=== PATIENT | male | born 1975 | race Caucasian/White ===

== ENCOUNTER → 2018-10-24 | Outpatient (CLI) | payer BC ==
[~2018-10-24] MED LIST: BUPIVACAINE MPF 0.5% 10 ML VIAL for KCIC. IM ONE; IOHEXOL 300 MG/ML 50 ML VIAL. INT ART ONE; LIDOCAINE 1% Multi-Dose 20 ML VIAL. ID ONE; MINO100C PO; NAPR-514 PO; methylPREDNISolone ACETATE 40 MG/ML VIAL. INT ART ONE
--- NOTE | 2018-10-24 16:07 | KCIC ---
Examination: Fluoro Guided Therapeutic injection left hip. History: Right hip pain, osteoarthritis Relative benefits risks and alternatives to the procedure were discussed and verbal and written informed consent was obtained. The patient was carefully prepped and draped in a sterile fashion. Lidocaine was used for local anesthesia. A timeout was performed. A 22-gauge spinal needle was advanced to the level of the hip joint at the femoral neck. A mixture of 4 cc of lidocaine, 4 bupivacaine, 4 cc of iodinated contrast and 80 mg of Depo-Medrol was injected. The needle was removed. No immediate complication. Impression: Therapeutic injection right hip. 18 seconds of fluoroscopy was used for the procedure. Total fluoroscopic image 1. Electronically signed by: Feliz Fagan MD (10/24/2018 4:03 PM) [facility]-KCIC2
== END | disposition home or self-care (01) ==
LOC: KCIC 14:23
PROVIDERS: ATTEND Nurse Practitioner Gerontology
DX: M16.11 Unilateral primary osteoarthritis, right hip (principal); Z87.891 Personal history of nicotine dependence
CPT/HCPCS: 20610; 77002; J1030; Q9967

== ENCOUNTER → 2018-11-17 | Outpatient (CLI) | payer BC ==
[~2018-11-17] MED LIST changes: -BUPIVACAINE MPF 0.5% 10 ML VIAL for KCIC. IM ONE; -IOHEXOL 300 MG/ML 50 ML VIAL. INT ART ONE; -LIDOCAINE 1% Multi-Dose 20 ML VIAL. ID ONE; -methylPREDNISolone ACETATE 40 MG/ML VIAL. INT ART ONE
[2018-11-17] MEDS: GADOBUTROL 7.5 MMOL/7.5 ML VIAL IV ONE ×2 (08:34)
--- NOTE | 2018-11-17 11:54 | KCIC ---
MRI of the Brain without and with Contrast 11/17/2018 Clinical History: Left facial numbness for one month. Technique: Unenhanced T1-weighted sagittal and axial and FLAIR, T2-weighted and diffusion-weighted axial images of the brain were obtained. After the intravenous administration of 12 cc of Gadavist, enhanced T1-weighted axial and coronal images of the brain were obtained. Findings: The ventricles and sulci are within normal limits in size and configuration. No area of significant abnormal signal intensity is seen involving the brain parenchyma. No abnormal area of contrast enhancement is seen. No extra-axial fluid collection is noted. There is no MRI evidence of acute ischemia/infarction. Mild to moderate mucosal thickening is seen throughout the paranasal sinuses. Normal flow voids are seen within the major vascular structures surrounding the brain parenchyma. Impression: 1. Negative MRI of the brain. 2. Mild to moderate mucosal thickening is seen throughout the paranasal sinuses. Electronically signed by: Rocky Reynolds MD (11/17/2018 11:49 AM) [facility]-KC[facility]1
== END | disposition home or self-care (01) ==
LOC: KCIC MRI 07:38
PROVIDERS: ATTEND Family Medicine
DX: R20.0 Anesthesia of skin (principal)
CPT/HCPCS: 70553; A9585

== ENCOUNTER → 2018-11-18 | Outpatient (CLI) | payer BC ==
--- NOTE | 2018-11-18 11:22 | KCIC ---
Indication:Abnormal liver function tests. TECHNIQUE: Grayscale, color Doppler and spectral waveform is of the abdomen obtained. COMPARISON:None FINDINGS: Pancreas is not visualized due to: Bowel gas. No gallstones, pericholecystic fluid or gallbladder wall thickening. Main portal vein is patent. Right kidney measures 12.2 cm in length without hydronephrosis. CBD measures 3 mm in diameter and is within normal limits. Liver measures 17 cm in longest dimension and is normal in size with diffuse increased echogenicity and decreased through transmission. IVC within normal limits. No aortic aneurysm. Spleen measures personally meters in longest dimension and is normal in size. Left kidney measures 13 cm in length without hydronephrosis. IMPRESSION: 1. No cholelithiasis without evidence of acute cholecystitis. 2. Hepatic steatosis. Electronically signed by: Heath Olivera DO (11/18/2018 11:17 AM) [id number]
== END | disposition home or self-care (01) ==
LOC: KCIC US 10:27
PROVIDERS: ATTEND Family Medicine
DX: K76.0 Fatty (change of) liver, not elsewhere classified (principal)
CPT/HCPCS: 76700

== ENCOUNTER → 2020-11-11 | Outpatient (CLI) | payer BC ==
[~2020-11-11] MED LIST changes: -MINO100C PO; +MINO100C61 PO
--- NOTE | 2020-11-11 14:47 | CARD ---
MR#: [id number] Date of Study: 11/11/2020 Ordering Physician: CLAY JIMENEZ, Referring Physician: CLAY JIMENEZ, Tech: Antonella Ny [facility] APPROVED REPORT EXAM: Two-dimensional and M-mode echocardiogram with Doppler and color Doppler. Other Information Quality : AverageHR: 84bpm Rhythm : NSR INDICATION Palpitations RISK FACTORS Hypertension Obesity 2D DIMENSIONS RVDd3.5 (2.9-3.5cm)Left Atrium(2D)4.2 (1.6-4.0cm) IVSd1.4 (0.7-1.1cm)Aortic Root(2D)3.3 (2.0-3.7cm) LVDd4.9 (3.9-5.9cm)LVOT Diameter2.3 (1.8-2.4cm) PWd1.4 (0.7-1.1cm)LVDs3.1 (2.5-4.0cm) FS (%) 37.4 %SV75.1 ml Aortic Valve AoV Peak Ritchie.165.9cm/sAoV VTI33.2cm AO Peak GR.11.0mmHgLVOT Peak Ritchie.142.2cm/s AO Mean GR.5mmHgAVA (VMAX)3.43cm2 Mitral Valve MV E Bxvfwrqq70.7cm/sMV DECEL QYUF259vy MV A Snqjmpex823.3cm/sE/A Ratio0.9 Tricuspid Valve TR P. Ljnrlnxg908xq/sTR Peak Gr.16mmHg Pulmonary Vein S1 Tkbpebfg94.9cm/sD2 Amvgxeem31.1cm/s PVa [id number] LEFT VENTRICLE The left ventricle is normal size. There is mild concentric left ventricular hypertrophy. The left ve ntricular systolic function is normal and the ejection fraction is within normal range. Estimated ej ection fraction 55-60%. There is normal LV segmental wall motion. Transmitral Doppler flow pattern is Grade I-abnormal relaxation pattern. RIGHT VENTRICLE The right ventricle is normal size. There is normal right ventricular wall thickness. The right ventr icular systolic function is normal. ATRIA The left atrium size is normal. The right atrium size is normal. The interatrial septum is intact wit h no evidence for an atrial septal defect or patent foramen ovale as noted on 2-D or Doppler imaging. AORTIC VALVE The aortic valve is normal in structure and function. Doppler and Color Flow revealed no significant aortic regurgitation. There is no significant aortic valvular stenosis. MITRAL VALVE The mitral valve is normal in structure and function. There is no evidence of mitral valve prolapse. There is no mitral valve stenosis. Doppler and Color Flow revealed no mitral valve regurgitation note d. TRICUSPID VALVE The tricuspid valve is normal in structure and function. Doppler and Color Flow revealed trace tricus pid regurgitation. Estimated PAP 20 mmHg. There is no tricuspid valve stenosis. PULMONIC VALVE The pulmonary valve is normal in structure and function. Doppler and Color Flow revealed no pulmonic valvular regurgitation. GREAT VESSELS The aortic root is normal in size. The ascending aorta is normal in size. The pulmonary artery is nor mal. The IVC is normal in size and collapses >50% with inspiration. PERICARDIAL EFFUSION There is no evidence of significant pericardial effusion. Critical Notification Critical Value: No <Conclusion> The left ventricle is normal size. The left ventricular systolic function is normal and the ejection fraction is within normal range. Estimated ejection fraction 55-60%. There is mild concentric left ventricular hypertrophy. Doppler and Color Flow revealed no significant aortic regurgitation. There is no significant aortic valvular stenosis. Doppler and Color Flow revealed no mitral valve regurgitation noted. Doppler and Color Flow revealed trace tricuspid regurgitation. Estimated PAP 20 mmHg. Signed by : Clay Jimenez MD Electronically Approved : 11/11/2020 14:46:36
== END ==
LOC: ECHO 08:40
PROVIDERS: ATTEND Internal Medicine Cardiovascular Disease
DX: I51.7 Cardiomegaly (principal); R06.00 Dyspnea, unspecified
CPT/HCPCS: 93306

== ENCOUNTER → 2020-12-12 | Outpatient (CLI) | payer BC ==
--- NOTE | 2020-12-12 15:42 | RAD ---
EXAM: Left lower extremity venous Doppler sonogram; Valdivia scale left lower extremity sonogram. HISTORY: Pain and swelling. TECHNIQUE: Valdivia scale and color Doppler sonographic evaluation of the left lower extremity veins with spectral waveform analysis was performed. FINDINGS: There is normal color flow, normal compressibility and there are normal spectral waveforms in the common femoral, superficial femoral, popliteal, posterior tibial and greater saphenous veins. There is a complex fluid collection within the anterior fletcher soft tissues at the site of palpable con cern measuring 5.8 x 4.4 x 1.8 cm. IMPRESSION: 1. No Doppler evidence of lower extremity deep venous thrombosis. 2. 5.8 cm complex fluid collection within the anterior fletcher soft tissues. If there has been a history of recent trauma, this likely a soft tissue hematoma. Correlate with physical exam findings to exclu de infected fluid collection. There is no internal blood flow to suggest a solid lesion component. Electronically signed by: Catherine Walters MD (12/12/2020 3:40 PM) [id number]
== END ==
LOC: US 14:42
PROVIDERS: ATTEND Family Medicine
DX: R22.42 Localized swelling, mass and lump, left lower limb (principal)
CPT/HCPCS: 76882; 93971

== ENCOUNTER → 2021-07-11 | Outpatient (CLI) | payer BC ==
--- NOTE | 2021-07-11 09:34 | KCIC ---
AP and Lateral Views of the Chest 07/11/2021 8:25 AM Indication: Reason: SOA, no hx. asthma or COPD, nonsmoker / Spl. Instructions: / History: Comparison: None Findings: There is no focal consolidation or infiltrate identified. The cardiomediastinal silhouette is within normal limits. There is no evidence of pneumothorax or pleural effusion. No acute osseous a bnormalities are identified. Impression: No evidence of acute cardiopulmonary process. Electronically signed by: Honorio Horner MD (07/11/2021 9:32 AM) [id number]
== END ==
LOC: KCIC 07:56
PROVIDERS: ATTEND Internal Medicine Pulmonary Disease
DX: R06.02 Shortness of breath (principal)
CPT/HCPCS: 71046

== ENCOUNTER → 2021-07-11 | Outpatient (CLI) | payer BC ==
--- NOTE | 2021-07-11 13:22 | KCIC ---
Complete abdominal ultrasound. 07/11/2021 INDICATION: Elevated LFTs COMPARISON STUDY: Abdominal ultrasound November 18, 2018 Discussion: Ultrasound evaluation of the abdomen was performed. Static images are submitted to PACS. The aorta and IVC are poorly visualized. The pancreas is partially visualized. Visualized portions of the pancreas are unremarkable. The liver is enlarged measuring 20 cm longitudinally. Hepatic echotex ture is mildly heterogenous, but overall somewhat hyperechoic. No focal hepatic lesions are identifie d. Portions of the liver obscured. The portal vein appears to be grossly patent. The right kidney is normal in appearance measuring 14 cm x 6 cm x 6 cm. The gallbladder is normal in appearance without e vidence of wall thickening, stones, or sludge. The common bile duct is nondilated at 3 mm. Spleen is enlarged measuring 17 cm longitudinally. The left kidney is normal in appearance measuring 13.3 cm. IMPRESSION: 1.Hepatosplenomegaly. Both the liver and spleen have slightly increased in size with respect to exam from November 2018. 2. Probable hepatic steatosis Electronically signed by: Honorio Horner MD (07/11/2021 1:20 PM) [id number]
== END ==
LOC: KCIC US 07:53
PROVIDERS: ATTEND Family Medicine
DX: R16.2 Hepatomegaly with splenomegaly, not elsewhere classified (principal); R79.89 Other specified abnormal findings of blood chemistry; R17 Unspecified jaundice
CPT/HCPCS: 76700

== ENCOUNTER → 2021-11-16 | Outpatient (CLI) | payer BC ==
--- NOTE | 2021-11-16 13:05 | KCIC ---
CT of the chest without contrast: Clinical History: Reason: Hemoptysis. Past smoker, quit over 25 yrs. ago. Hx. Covid 2021. / Spl . Instructions: / History: Daily symptoms in the morning.. Axial helical images of the chest were obtained without contrast. FINDINGS: The lungs and pleural margins are clear. There is no mediastinal or hilar lymphadenopathy. The thoracic aorta appears normal. Impression: No significant findings. PQRS Compliance Statement: One or more of the following individualized dose reduction techniques were utilized for this examinat ion: 1. Automated exposure control 2. Adjustment of the mA and/or kV according to patient size 3. Use of iterative reconstruction technique Electronically signed by: Ye Salinas III, MD (11/16/2021 1:02 PM) [facility]
== END ==
LOC: KCIC CT 12:18
PROVIDERS: ATTEND Family Medicine
DX: R04.2 Hemoptysis (principal); Z87.890 Personal history of sex reassignment; Z86.16 Personal history of COVID-19
CPT/HCPCS: 71250

== ENCOUNTER → 2022-02-20 | Outpatient (CLI) | payer BC ==
[~2022-02-20] MED LIST changes: +BUPIVACAINE MPF 0.5% 10 ML VIAL. INT ART ONE; +IOHEXOL 300 MG/ML 50 ML VIAL. INT ART ONE; +LIDOCAINE 1% Multi-Dose 20 ML VIAL. ID ONE; +TRIAMCINOLONE PRES.FREE 40 MG/ML VIAL. INT ART ONE
--- NOTE | 2022-02-20 15:44 | KCIC ---
EXAM: FLUOROSCOPY GUIDED HIP ARTHROGRAM History: Right hip pain, osteoarthritis COMPARISON: None available TECHNIQUE: Consent: An informed consent was obtained from the patient prior to the procedure. Appropriate time out procedures were performed. The skin was prepped and draped in the usual fashion under aseptic precautions. 1% lidocaine was util ized for local anesthesia. Under fluoroscopic guidance a 22 gauge long spinal needle was used to access the hip joint. 4 mL of O mnipaque, 4 mL lidocaine, 4 mL bupivacaine, 80 mg Kenalog was injected into the hip joint. Needle was removed. No complications. IMPRESSION: Technically successful fluoroscopic-guided right hip steroid injection. Total fluoroscopic time 18 seconds. Electronically signed by: Feliz Fagan MD (02/20/2022 3:41 PM) [id number]
== END | disposition home or self-care (01) ==
LOC: KCIC 12:48
PROVIDERS: ATTEND Family Medicine
DX: M16.11 Unilateral primary osteoarthritis, right hip (principal); M25.551 Pain in right hip; Z79.899 Other long term (current) drug therapy
CPT/HCPCS: 20610; 77002; J3301; J3490; Q9967